=== PATIENT | male | born 1995 | race Caucasian/White ===

== ENCOUNTER 2018-06-15 03:27 | Emergency (ER) | payer SELFPAY ==
[~2018-06-15] VITALS: Ht 177.8 cm; Wt 110.5 kg
[~2018-06-15 03:27] MED LIST: ALAVERT10 M1 PO; MINOCYCLIN100 MG/CAP PO; SINGULAIR 110 MG/TAB PO; allergy pill
[2018-06-15 03:31] VITALS: TEMP 98.7
[2018-06-15 04:09] LABS: BASO # 0.1 (0.0-0.2); BASO % 0.5 % (0.0-2.0); EOS # 0.3 (0.0-0.7); EOS % 2.9 % (0-4.0); GRAN # 7.8 (1.4-6.5); GRAN % 69.7 % (42.2-75.2); HEMATOCRIT 43.3 % (42.0-52.0); HEMOGLOBIN 15.2 g/dl (13.5-18.0); LYMPH # 2.1 (1.2-3.4); LYMPH % 18.5 % (20.0-51.0); MEAN CELL VOLUME 86 fl (80.0-100.0); MEAN CORPUSCULAR HEMOGLOBIN 30 pg (27.0-31.0); MEAN CORPUSCULAR HGB CONC 35 g/dl (33.0-37.0); MEAN PLATELET VOLUME 9.9 fl (7.4-10.4); MONO # 0.9 (0.1-0.6); PLATELET COUNT 349 K/mm3 (130-400); RED BLOOD COUNT 5.04 M/mm3 (4.20-5.60); REDCELL DISTRIBUTION WIDTH-CV 12.9 % (11.5-14.5)
[2018-06-15 04:22] LABS: ALANINE AMINOTRANSFERASE 39 U/L (21-72); ALBUMIN 4.5 gm/dL (3.5-5.0); ALKALINE PHOSPHATASE 85 U/L (50-136); ANION GAP 11 mmol/L (7-16); AST,SGOT 31 U/L (15-37); BILIRUBIN,TOTAL 1.5 mg/dL (0.0-1.0); BLOOD UREA NITROGEN 17 mg/dL (9-20); C-REACTIVE PROTEIN 1.8 mg/dL (0.0-0.9); CALCIUM 9.1 mg/dL (8.4-10.2); CARBON DIOXIDE 23 mmol/L (22-30); CHLORIDE 107 mmol/L (98-107); CREATININE, serum 0.92 mg/dL (0.66-1.25); GLUCOSE 85 mg/dL (74-106); LIPASE 276 U/L (23-300); SODIUM 141 mmol/L (137-145); TOTAL PROTEIN 7.8 gm/dL (6.4-8.2)
[2018-06-15 04:33] LABS: TROPONIN-I < 0.012 ng/mL (0.000-0.035)
[2018-06-15] MEDS ORDERED: ATIVAN 1MG T1 MG/TAB PO (05:40)
[2018-06-15 05:50] VITALS: BP 122/78; PULSE 62
== END 2018-06-15 05:50 | disposition home or self-care (01) ==
LOC: COL.ER 03:27
PROVIDERS: Emergency Medicine
DX: R07.89 Other chest pain (principal)
CPT/HCPCS: J1885; J2060